=== PATIENT | female | born 1935 | race Two or more races ===

== ENCOUNTER 2023-09-05 20:43 | Inpatient (IN) | payer MEDICARE, OTHER ==
[~2023-09-05] VITALS: Ht 170.2 cm; Wt 75.7 kg
[2023-09-05 21:26] LABS: BASOPHILS # (AUTO) 0.1 K/uL (0.0-0.2); BASOPHILS % (AUTO) 0.7 % (0.0-2.0); EOSINOPHILS # (AUTO) 0.1 K/uL (0.0-0.7); EOSINOPHILS % (AUTO) 1.2 % (0.0-6.0); HEMATOCRIT 39 % (33-45); HEMOGLOBIN 12.9 g/dL (11.5-14.8); LYMPHOCYTES # (AUTO) 1.5 K/uL (0.8-4.8); LYMPHOCYTES % (AUTO) 15.9 % (20.0-44.0); MEAN CORPUSCULAR HEMOGLOBIN 31 PG (26.0-33.0); MEAN CORPUSCULAR HGB CONC 33 g/dl (31.0-36.0); MEAN CORPUSCULAR VOLUME 92 fL (82-100); MONOCYTES # (AUTO) 0.6 K/uL (0.1-1.30); MONOCYTES % (AUTO) 6.2 % (2.0-12.0); NEUTROPHILS # (AUTO) 7.4 K/uL (1.8-8.9); PLATELET COUNT (AUTO) 300 K/uL (150-450); RED BLOOD CELL COUNT(AUTO) 4.22 MIL/uL (4.0-5.2); RED CELL DISTRIBUTION WIDTH 13.6 % (11.5-15.0); WHITE BLOOD COUNT (AUTO) 9.7 K/uL (4.3-11.0)
[2023-09-05 21:36] LABS: CALCIUM, SERUM 9.9 mg/dL (8.5-10.1); CARBON DIOXIDE 31 mmol/L (21-32); CHLORIDE 100 mmol/L (98-107); CREATININE 0.8 mg/dL (0.6-1.3); GLUCOSE 108 mg/dL (74-106); POTASSIUM 4.6 mmol/L (3.5-5.1); SODIUM SERUM 134 mmol/L (136-145); UREA NITROGEN, BLOOD 52 mg/dL (7-18)
[2023-09-05 21:49] LABS: NT-PRO BNP 117 pg/mL (0-125)
[2023-09-05] MEDS ORDERED: Z GUARD REMEDY 4 OZ OINT TP PRN (23:00)
[2023-09-05] MEDS ORDERED: NITROGLYCERIN 0.4 MG/TAB BOTTLE SL PRN (23:00)
[2023-09-06] VITALS (8 sets, daily range): BP systolic 102–135; BP diastolic 65–97; TEMP 97.5–98.1; O2SAT 93–100
[2023-09-06] MEDS: ENOXAPARIN SODIUM 40 MG/0.4 ML DISP.SYRIN SQ SCH (02:19)
[2023-09-06] MEDS: MAGNESIUM HYDROXIDE 30 ML UDC PO PRN (04:08)
[2023-09-06] MEDS: ACETAMINOPHEN 325 MG TABLET PO PRN (04:48)
[2023-09-06] MEDS: IV NS 0.9% 1,000 ML IV PRN (05:37)
[2023-09-06] MEDS: MAG HYDROX/AL HYDROX/SIMETH 30 ML UDC PO PRN (05:54)
[2023-09-06 07:13] LABS: BASOPHILS # (AUTO) 0.1 K/uL (0.0-0.2); BASOPHILS % (AUTO) 0.6 % (0.0-2.0); EOSINOPHILS # (AUTO) 0.1 K/uL (0.0-0.7); EOSINOPHILS % (AUTO) 1.5 % (0.0-6.0); HEMATOCRIT 37 % (33-45); HEMOGLOBIN 12.6 g/dL (11.5-14.8); LYMPHOCYTES # (AUTO) 1.9 K/uL (0.8-4.8); LYMPHOCYTES % (AUTO) 20.9 % (20.0-44.0); MEAN CORPUSCULAR HEMOGLOBIN 31 PG (26.0-33.0); MEAN CORPUSCULAR HGB CONC 34 g/dl (31.0-36.0); MEAN CORPUSCULAR VOLUME 92 fL (82-100); MONOCYTES # (AUTO) 0.6 K/uL (0.1-1.30); MONOCYTES % (AUTO) 6.5 % (2.0-12.0); NEUTROPHILS # (AUTO) 6.5 K/uL (1.8-8.9); NEUTROPHILS % (AUTO) 70.5 % (43.0-81.0); PLATELET COUNT (AUTO) 311 K/uL (150-450); RED BLOOD CELL COUNT(AUTO) 4.01 MIL/uL (4.0-5.2); RED CELL DISTRIBUTION WIDTH 13.8 % (11.5-15.0); WHITE BLOOD COUNT (AUTO) 9.2 K/uL (4.3-11.0)
[2023-09-06 07:34] LABS: ALANINE AMINOTRANSFERASE 33 U/L (12-78); ALBUMIN 2.5 g/dL (3.4-5.0); ALKALINE PHOSPHATASE 73 U/L (46-116); ASPARTATE AMINOTRANSFERASE 22 U/L (15-37); BILIRUBIN,DIRECT 0.2 mg/dL (0.0-0.2); BILIRUBIN,TOTAL 0.4 mg/dL (0.2-1.0); CALCIUM, SERUM 9.8 mg/dL (8.5-10.1); CARBON DIOXIDE 27 mmol/L (21-32); CHLORIDE 101 mmol/L (98-107); CREATININE 0.6 mg/dL (0.6-1.3); GLUCOSE 98 mg/dL (74-106); PHOSPHORUS 2.9 mg/dL (2.5-4.9); POTASSIUM 4.3 mmol/L (3.5-5.1); SODIUM SERUM 138 mmol/L (136-145); TOTAL PROTEIN, SERUM 7.3 g/dL (6.4-8.2); UREA NITROGEN, BLOOD 47 mg/dL (7-18)
[2023-09-06] MEDS: PANTOPRAZOLE 40 MG TABLET.DR PO SCH (07:40)
[2023-09-06] MEDS ORDERED: POVI37802 TP (08:43)
[2023-09-06] MEDS ORDERED: ZINC220C6 PO (08:43)
[2023-09-06] MEDS ORDERED: GABA-532 PO (08:43)
[2023-09-06] MEDS ORDERED: SERT50TA12 PO (08:43)
[2023-09-06] MEDS ORDERED: PROC10TA13 PO (08:43)
[2023-09-06] MEDS ORDERED: VIT1CAPS44 PO (08:43)
[2023-09-06] MEDS ORDERED: DOCU100C36 PO (08:43)
[2023-09-06] MEDS ORDERED: ASCO-352 PO (08:43)
[2023-09-06] MEDS ORDERED: TEMA7.5C12 PO (08:43)
[2023-09-06] MEDS ORDERED: METO37.5 PO (08:43)
[2023-09-06] MEDS ORDERED: MEGE400O4 PO (08:43)
[2023-09-06] MEDS ORDERED: MAGN400O6 PO (08:43)
[2023-09-06] MEDS ORDERED: METH750T3 PO (08:43)
[2023-09-06] MEDS ORDERED: BENA10TA74 PO (08:43)
[2023-09-06] MEDS ORDERED: ALPR0.25 PO (08:43)
[2023-09-06] MEDS ORDERED: BISA10SU11 RC (08:43)
[2023-09-06] MEDS ORDERED: ASPI-1169 PO (08:43)
[2023-09-06] MEDS ORDERED: MIRABEGRON PO (08:43)
[2023-09-06] MEDS ORDERED: ACET325T53 PO ×2 (08:43)
[2023-09-06] MEDS ORDERED: MULT-213 PO (08:43)
[2023-09-06] MEDS ORDERED: ATOR40TA PO (08:43)
[2023-09-06] MEDS ORDERED: HYDR25TA4 PO (08:43)
[2023-09-06] MEDS: ASPIRIN 325 MG TABLET PO SCH (08:48)
[2023-09-06] MEDS: LORAZEPAM 0.5 MG TABLET PO ONE (14:03)
[2023-09-06] MEDS: MINERAL OIL 133 ML (PYXIS) 1 EA ENEMA RC ONE (14:11)
[2023-09-06] MEDS: PSYLLIUM SEED 1 PKT PACKET PO SCH (14:23)
[2023-09-06] MEDS: ONDANSETRON HCL/PF 4 MG/2 ML VIAL IVP PRN (15:40)
[2023-09-06] MEDS: AMIODARONE 150 MG in IV D5W 100 ML IV ONE (15:44)
[2023-09-06] MEDS: AMIODARONE 450 MG in IV D5W 241 ML IV PRN (15:53)
[2023-09-06] MEDS: ZOLPIDEM TARTRATE 5 MG TABLET PO PRN (20:42)
[2023-09-07] VITALS (7 sets, daily range): BP systolic 101–137; BP diastolic 61–90; TEMP 97–98.4; O2SAT 94–98
[2023-09-07 06:40] LABS: BASOPHILS # (AUTO) 0.1 K/uL (0.0-0.2); BASOPHILS % (AUTO) 0.9 % (0.0-2.0); EOSINOPHILS # (AUTO) 0.2 K/uL (0.0-0.7); EOSINOPHILS % (AUTO) 2.2 % (0.0-6.0); HEMATOCRIT 34 % (33-45); HEMOGLOBIN 11.6 g/dL (11.5-14.8); LYMPHOCYTES # (AUTO) 1.9 K/uL (0.8-4.8); LYMPHOCYTES % (AUTO) 21.6 % (20.0-44.0); MEAN CORPUSCULAR HEMOGLOBIN 32 PG (26.0-33.0); MEAN CORPUSCULAR HGB CONC 34 g/dl (31.0-36.0); MEAN CORPUSCULAR VOLUME 92 fL (82-100); MONOCYTES # (AUTO) 0.5 K/uL (0.1-1.30); MONOCYTES % (AUTO) 6.1 % (2.0-12.0); NEUTROPHILS % (AUTO) 69.2 % (43.0-81.0); PLATELET COUNT (AUTO) 264 K/uL (150-450); RED BLOOD CELL COUNT(AUTO) 3.68 MIL/uL (4.0-5.2); WHITE BLOOD COUNT (AUTO) 8.7 K/uL (4.3-11.0)
[2023-09-07 06:55] LABS: CALCIUM, SERUM 8.8 mg/dL (8.5-10.1); CARBON DIOXIDE 25 mmol/L (21-32); CHLORIDE 106 mmol/L (98-107); CREATININE 0.6 mg/dL (0.6-1.3); GLUCOSE 94 mg/dL (74-106); MAGNESIUM 2.1 mg/dL (1.8-2.4); PHOSPHORUS 2.6 mg/dL (2.5-4.9); POTASSIUM 4.3 mmol/L (3.5-5.1); SODIUM SERUM 138 mmol/L (136-145); UREA NITROGEN, BLOOD 40 mg/dL (7-18)
[2023-09-07] MEDS: APIXABAN 5 MG TABLET PO SCH (08:54)
[2023-09-07] MEDS ORDERED: NA PHOS,M-B/NA PHOS,DI-BA 1 EA ENEMA RC PRN (13:30)
[2023-09-07] MEDS: MULTIVIT W/MINERALS 1 TAB TABLET PO SCH (14:20)
[2023-09-07] MEDS: MINERAL OIL 133 ML (PYXIS) 1 EA ENEMA RC ONE (14:21)
[2023-09-07] MEDS: POLYETHYLENE GLYCOL 3350 17 GM POWD.PACK PO PRN (14:21)
[2023-09-07] MEDS: BISACODYL SUPP (10 MG) 10 MG/SUPP.RECT SUPP.RECT RC ONE (14:21)
[2023-09-07] MEDS: METOPROLOL TARTRATE 25 MG TABLET PO SCH (16:49)
[2023-09-07] MEDS: DOCUSATE SODIUM 100 MG CAPSULE PO SCH (16:49)
[2023-09-07] MEDS: TEMAZEPAM 7.5 MG CAPSULE PO SCH (21:08)
[2023-09-07] MEDS: DRONEDARONE HYDROCHLORIDE 400 MG TABLET PO SCH (21:08)
[2023-09-07] MEDS: GABAPENTIN 100 MG CAPSULE PO SCH (21:09)
[2023-09-07] MEDS: ATORVASTATIN 40 MG TABLET PO SCH (21:09)
[2023-09-08] VITALS (7 sets, daily range): BP systolic 100–132; BP diastolic 50–72; TEMP 97.5–99; O2SAT 94–96
[2023-09-08 06:07] LABS: *SPE A/G RATIO 0.6 (0.7-1.7); *SPE ALBUMIN 2.4 g/dL (2.9-4.4); *SPE ALPHA-1-GLOBULIN 0.4 g/dL (0.0-0.4); *SPE ALPHA-2-GLOBULIN 1.7 g/dL (0.4-1.0); *SPE BETA GLOBULIN 0.8 g/dL (0.7-1.3); *SPE GLOBULIN, TOTAL 3.9 g/dL (2.2-3.9); *SPE M-SPIKE 0.3 g/dL (Not Observed); *SPE PROTEIN TOTAL 6.3 g/dL (6.0-8.5)
[2023-09-08 06:51] LABS: BASOPHILS # (AUTO) 0.1 K/uL (0.0-0.2); BASOPHILS % (AUTO) 1.1 % (0.0-2.0); EOSINOPHILS # (AUTO) 0.2 K/uL (0.0-0.7); EOSINOPHILS % (AUTO) 2.6 % (0.0-6.0); HEMATOCRIT 31 % (33-45); HEMOGLOBIN 10.6 g/dL (11.5-14.8); LYMPHOCYTES # (AUTO) 2.2 K/uL (0.8-4.8); LYMPHOCYTES % (AUTO) 27.3 % (20.0-44.0); MEAN CORPUSCULAR HEMOGLOBIN 32 PG (26.0-33.0); MEAN CORPUSCULAR HGB CONC 34 g/dl (31.0-36.0); MEAN CORPUSCULAR VOLUME 93 fL (82-100); MONOCYTES # (AUTO) 0.6 K/uL (0.1-1.30); MONOCYTES % (AUTO) 6.9 % (2.0-12.0); NEUTROPHILS % (AUTO) 62.1 % (43.0-81.0); PLATELET COUNT (AUTO) 265 K/uL (150-450); RED BLOOD CELL COUNT(AUTO) 3.33 MIL/uL (4.0-5.2); RED CELL DISTRIBUTION WIDTH 14.2 % (11.5-15.0); WHITE BLOOD COUNT (AUTO) 8.1 K/uL (4.3-11.0)
[2023-09-08] MEDS: ZINC SULFATE 220 MG CAPSULE PO SCH (08:55)
[2023-09-08] MEDS: ASCORBIC ACID 500 MG TABLET PO SCH (08:55)
[2023-09-08] MEDS: SERTRALINE HCL 25 MG TABLET PO SCH (08:56)
[2023-09-08 09:14] LABS: ALANINE AMINOTRANSFERASE 23 U/L (12-78); ALBUMIN 1.9 g/dL (3.4-5.0); ALKALINE PHOSPHATASE 53 U/L (46-116); ASPARTATE AMINOTRANSFERASE 14 U/L (15-37); BILIRUBIN,TOTAL 0.4 mg/dL (0.2-1.0); CALCIUM, SERUM 8.5 mg/dL (8.5-10.1); CARBON DIOXIDE 21 mmol/L (21-32); CHLORIDE 109 mmol/L (98-107); CREATININE 0.4 mg/dL (0.6-1.3); GLUCOSE 78 mg/dL (74-106); MAGNESIUM 2.1 mg/dL (1.8-2.4); PHOSPHORUS 2.4 mg/dL (2.5-4.9); POTASSIUM 4.2 mmol/L (3.5-5.1); SODIUM SERUM 142 mmol/L (136-145); TOTAL PROTEIN, SERUM 5.5 g/dL (6.4-8.2); UREA NITROGEN, BLOOD 23 mg/dL (7-18)
[2023-09-08] MEDS: K PHOS NEUTRAL 250 MG TABLET PO ONE (15:28)
[2023-09-08] MEDS: ALPRAZOLAM 0.25 MG TABLET PO PRN (15:28)
[2023-09-09] VITALS: BP 113/58; TEMP 98.2; O2SAT 97
[2023-09-09 04:00] VITALS: BP 119/62; TEMP 98.2; O2SAT 97
[2023-09-09 04:43] VITALS: O2SAT 96
[2023-09-09 06:44] LABS: BASOPHILS # (AUTO) 0.1 K/uL (0.0-0.2); BASOPHILS % (AUTO) 0.7 % (0.0-2.0); EOSINOPHILS # (AUTO) 0.2 K/uL (0.0-0.7); EOSINOPHILS % (AUTO) 2.1 % (0.0-6.0); HEMATOCRIT 31 % (33-45); HEMOGLOBIN 10.6 g/dL (11.5-14.8); LYMPHOCYTES # (AUTO) 2.4 K/uL (0.8-4.8); LYMPHOCYTES % (AUTO) 23.1 % (20.0-44.0); MEAN CORPUSCULAR HEMOGLOBIN 31 PG (26.0-33.0); MEAN CORPUSCULAR HGB CONC 34 g/dl (31.0-36.0); MEAN CORPUSCULAR VOLUME 93 fL (82-100); MONOCYTES # (AUTO) 0.7 K/uL (0.1-1.30); MONOCYTES % (AUTO) 6.5 % (2.0-12.0); NEUTROPHILS % (AUTO) 67.6 % (43.0-81.0); PLATELET COUNT (AUTO) 268 K/uL (150-450); RED BLOOD CELL COUNT(AUTO) 3.38 MIL/uL (4.0-5.2); RED CELL DISTRIBUTION WIDTH 13.8 % (11.5-15.0); WHITE BLOOD COUNT (AUTO) 10.3 K/uL (4.3-11.0)
[2023-09-09 07:10] LABS: CALCIUM, SERUM 8.7 mg/dL (8.5-10.1); CARBON DIOXIDE 28 mmol/L (21-32); CHLORIDE 107 mmol/L (98-107); CREATININE 0.5 mg/dL (0.6-1.3); GLUCOSE 90 mg/dL (74-106); MAGNESIUM 1.9 mg/dL (1.8-2.4); PHOSPHORUS 3.2 mg/dL (2.5-4.9); POTASSIUM 3.8 mmol/L (3.5-5.1); SODIUM SERUM 140 mmol/L (136-145); UREA NITROGEN, BLOOD 17 mg/dL (7-18)
[2023-09-09 07:42] LABS: THYROID STIMULATING HORMONE 3.11 uIU/mL (0.358-3.74)
[2023-09-09 08:00] VITALS: BP 147/67; TEMP 98.2; O2SAT 97
[2023-09-09 16:00] VITALS: BP 146/55; TEMP 98.4; O2SAT 98
[2023-09-09 20:00] VITALS: BP 111/54; TEMP 98; O2SAT 99
[2023-09-10] VITALS: BP 107/81; TEMP 97.8; O2SAT 96
[2023-09-10 04:00] VITALS: BP 114/69; TEMP 98.1; O2SAT 96
[2023-09-10 08:00] VITALS: BP 152/72; TEMP 98.5; O2SAT 96
[2023-09-10 08:12] LABS: FREE KAPPA LT CHAINS SERUM 18.1 mg/L (3.3-19.4); FREE LAMBDA LT CHAIN SERUM 13.5 mg/L (5.7-26.3); IMMUNOGLOBULIN A, SERUM 193 mg/dL (64-422); IMMUNOGLOBULIN G, SERUM 748 mg/dL (586-1602); IMMUNOGLOBULIN M, SERUM 76 mg/dL (26-217); KAPPA/LAMBDA RATIO SERUM 1.34 (0.26-1.65)
[2023-09-10 09:00] VITALS: BP 152/72
[2023-09-10 09:07] LABS: FOLIC ACID 4.6 ng/mL (>3.0)
[2023-09-11] MEDS ORDERED: ENSURE ENLIVE 237 ML LIQUID (VANILLA) PO SCH (09:00)
[2023-09-13 18:10] LABS: BETA-2 MICROGLOBULIN, SERUM 1.9 mg/L (0.6-2.4)
== END 2023-09-10 19:05 | DRG 309 ==
LOC: ER 20:45 → TELE1 22:29 → TELE-TD 09-06 15:19 → TELE1 09-08 07:58 → MEDSG1 09-10 10:47
PROVIDERS: ADMIT Nurse Practitioner Family; ATTEND Nurse Practitioner Family
DX: I48.91 Unspecified atrial fibrillation (principal); E87.1 Hypo-osmolality and hyponatremia; G81.94 Hemiplegia, unspecified affecting left nondominant side; N17.9 Acute kidney failure, unspecified; R07.9 Chest pain, unspecified; E86.0 Dehydration; F41.9 Anxiety disorder, unspecified; D64.9 Anemia, unspecified; I10 Essential (primary) hypertension; E78.5 Hyperlipidemia, unspecified; F32.A Depression, unspecified; Z88.0 Allergy status to penicillin; Z86.73 Personal history of transient ischemic attack (TIA), and cerebral infarction without residual deficits; E86.9 Volume depletion, unspecified; D47.2 Monoclonal gammopathy; K59.00 Constipation, unspecified; Z79.82 Long term (current) use of aspirin; Z79.899 Other long term (current) drug therapy
CPT/HCPCS: 36415; 71045-TC; 74018; 80048-TC; 80053-TC; 80061-TC; 80076-TC; 82232; 82607-TC; 82728-TC; 82784; 82962-TC; 83540-TC; 83735-TC; 83880; 84100-TC; 84155; 84165; 84439-TC; 84443-TC; 84484-TC; 85025-TC; 86334; 93307-TC; 93970-TC; 94799-TC; 97110-TC; 97112-TC; 97530-TC; 97535-TC; A4223; G0378; J0282; J1650; J2405; J7030; J7050; J7060